=== PATIENT | female | born 1995 ===

== ENCOUNTER 2017-01-27 19:20 | Emergency (ER) | payer MEDICAID, OTHER ==
[2017-01-27 19:50] VITALS: BP 122/74; PULSE 81; RESP 16; TEMP 99.2; O2SAT 100
--- NOTE | 2017-01-27 20:14 | ED PDOC ---
HPI: Skin/Bite Injury Time Seen by Provider: 01/27/17 20:03 Chief Complaint (Nursing): Abnormal Skin Integrity Chief Complaint (Provider): Abnormal Skin Integrity History Per: Patient History/Exam Limitations: no limitations Onset/Duration Of Symptoms: Days (x2 days) Current Symptoms Are (Timing): Still Present Additional Complaint(s): 21 y/o female presents to the emergency department with a complaint of facial swelling x2 days. Admits babysitting her younger siblings the day prior. Denies any other medical complaints. Past Medical History Vital Signs: Last Vital Signs Temp 99.2 F 01/27/17 19:47 Pulse 81 01/27/17 19:47 Resp 16 01/27/17 19:47 BP 122/74 01/27/17 19:47 Pulse Ox 100 01/27/17 20:32 - Medical History PMH: Denies: Chronic Kidney Disease - Surgical History Surgical History: Appendectomy - Family History Family History: States: Unknown Family Hx - Immunization History Hx Tetanus Toxoid Vaccination: Yes Hx Influenza Vaccination: No Hx Pneumococcal Vaccination: No - Home Medications Home Medications: Ambulatory Orders Medication Instructions Recorded Valacyclovir HCl [Valtrex] 1,000 mg PO Q8H #21 tablet 01/23/17 Mupirocin 2% Ointment [Bactroban 1 appl TP TID #1 tube 01/27/17 Ointment] - Allergies Allergies/Adverse Reactions: Allergies Allergy/AdvReac Type Severity Reaction Status Date / Time No Known Allergies Allergy Verified 01/22/17 23:44 Review of Systems ROS Statement: Except As Marked, All Systems Reviewed And Found Negative Skin: Positive for: Other (Facial swelling) Physical Exam - Reviewed Nursing Documentation Reviewed: Yes Vital Signs Reviewed: Yes - Physical Exam Appears: Positive for: Non-toxic, No Acute Distress Head Exam: Positive for: ATRAUMATIC, NORMAL INSPECTION, NORMOCEPHALIC Skin: Positive for: Warm, Dry, Rash (erythematous lesions to the upper lip extending to nose and right nasal with a honey colored covered crust ) Eye Exam: Positive for: Normal appearance ENT: Positive for: Normal ENT Inspection Neck: Positive for: Normal Respiratory: Negative for: Accessory Muscle Use, Respiratory Distress Neurologic/Psych: Positive for: Alert, Oriented, Gait - ECG O2 Sat by Pulse Oximetry: 100 (RA) Pulse Ox Interpretation: Normal Medical Decision Making Medical Decision Making: Time: 20:03 Initial Impression: Skin Abnormality Time: 20:15 Patient is medically stable, and requires no further treatment in the ED at this time. Patient will be discharged home with Rx for Mupirocin 2% Ointment. Counseling was provided and all questions were answered regarding diagnosis and need for follow up with PMD. There is agreement to discharge plan. Return if symptoms persist or worsen. Clinical Impression: [place] Scribe Attestation: Documented by Minerva Mishra, acting as a scribe for Brielle Pressley PA-C. Provider Scribe Attestation: All medical record entries made by the Scribe were at my direction and personally dictated by me. I have reviewed the chart and agree that the record accurately reflects my personal performance of the history, physical exam, medical decision making, and the department course for this patient. I have also personally directed, reviewed, and agree with the discharge instructions and disposition. Disposition - Clinical Impression Clinical Impression: [place] Counseled Patient/Family Regarding: Diagnosis, Rx Given - Disposition Disposition: Routine/Home Disposition Time: 20:15 Condition: STABLE Prescriptions: Mupirocin 2% Ointment [Bactroban Ointment] 1 appl TP TID #1 tube Instructions: [place] (ED)
== END 2017-01-27 20:33 | disposition home or self-care (01) ==
LOC: H.ER 19:20
DX: L01.00 Impetigo, unspecified (principal)